=== PATIENT | male | born 1940 | race Caucasian/White ===

== ENCOUNTER 2025-03-11 16:24 | Inpatient (IN) | payer MEDICARE, OTHER ==
[~2025-03-11] VITALS: Ht 165.1 cm; Wt 58.1 kg
[2025-03-11 16:55] LABS: PLATELET COUNT (AUTO) 158 K/uL (150-450); RED BLOOD CELL COUNT(AUTO) 5.58 MIL/uL (4.5-6.0); RED CELL DISTRIBUTION WIDTH 17.0 % (11.5-15.0); WHITE BLOOD COUNT (AUTO) 6.6 K/uL (4.3-11.0)
[2025-03-11 17:08] LABS: INR 1.42 (0.91-1.10)
[2025-03-11 17:09] LABS: CALCIUM, SERUM 9.1 mg/dL (8.5-10.1); CREATININE 1.0 mg/dL (0.6-1.3); SODIUM SERUM 144 mmol/L (136-145); UREA NITROGEN, BLOOD 18 mg/dL (7-18)
[2025-03-11 17:22] LABS: ASPARTATE AMINOTRANSFERASE 29 U/L (15-37); NT-PRO BNP 2533 pg/mL (0-125); TOTAL PROTEIN, SERUM 7.4 g/dL (6.4-8.2)
[2025-03-11] MEDS ORDERED: IOHEXOL-350 100 ML VIAL IV ONE (17:33)
[2025-03-11] MEDS ORDERED: FUROSEMIDE 40 MG/4 ML VIAL ONE (18:27)
[2025-03-11] MEDS: FUROSEMIDE 40 MG/4 ML VIAL IV ONE (18:33)
[2025-03-11] MEDS ORDERED: AMLO-212 PO (18:53)
[2025-03-11] MEDS ORDERED: ESCI20TA PO (18:53)
[2025-03-11] MEDS ORDERED: METO-358 PO (18:53)
[2025-03-11] MEDS ORDERED: APIX2.5T PO (18:53)
[2025-03-11] MEDS ORDERED: LOSA100T31 PO (18:53)
[2025-03-11] MEDS ORDERED: Z GUARD REMEDY 4 OZ OINT TP PRN (19:00)
[2025-03-11] MEDS ORDERED: MAGNESIUM HYDROXIDE 30 ML UDC PO PRN (19:00)
[2025-03-11] MEDS ORDERED: HYDROCODONE/APAP 5/325MG TABLET PO PRN (19:00)
[2025-03-11] MEDS ORDERED: MAG HYDROX/AL HYDROX/SIMETH 30 ML UDC PO PRN (19:00)
[2025-03-11] MEDS ORDERED: ONDANSETRON HCL/PF 4 MG/2 ML VIAL IVP PRN (19:00)
[2025-03-11] MEDS ORDERED: MORPHINE SULFATE INJ 2 MG/ML DISP.SYRIN IV PRN (19:30)
[2025-03-11 20:15] VITALS: BP 128/106; TEMP 98.4; O2SAT 94
[2025-03-11] MEDS: ESCITALOPRAM OXALATE (10 MG) 10 MG TABLET PO SCH (21:07)
[2025-03-11] MEDS: METOPROLOL SUCCINATE 50 MG TAB.SR.24H PO SCH (21:07)
[2025-03-12] VITALS: BP 119/74; TEMP 97.7; O2SAT 96
[2025-03-12 04:00] VITALS: BP_SYST 107; BP_SYST 111; BP_DIAS 69; BP_DIAS 70; TEMP 97.7; TEMP 97.8; O2SAT 100; O2SAT 95
[2025-03-12 06:29] LABS: PLATELET COUNT (AUTO) 155 K/uL (150-450); RED BLOOD CELL COUNT(AUTO) 5.20 MIL/uL (4.5-6.0); RED CELL DISTRIBUTION WIDTH 16.6 % (11.5-15.0); WHITE BLOOD COUNT (AUTO) 6.7 K/uL (4.3-11.0)
[2025-03-12 06:55] LABS: CALCIUM, SERUM 9.0 mg/dL (8.5-10.1); CREATININE 1.0 mg/dL (0.6-1.3); PHOSPHORUS 3.9 mg/dL (2.5-4.9); SODIUM SERUM 145.0 mmol/L (136-145); UREA NITROGEN, BLOOD 19.0 mg/dL (7-18)
[2025-03-12 07:22] LABS: LDL 65.0 mg/dL (0-99)
[2025-03-12 08:00] VITALS: BP 127/92; TEMP 97.5; O2SAT 95
[2025-03-12] MEDS: PANTOPRAZOLE 40 MG TABLET.DR PO SCH (08:21)
[2025-03-12] MEDS: POTASSIUM CHLORIDE 20 MEQ TAB.PRT.SR PO SCH (08:51)
[2025-03-12] MEDS: LOSARTAN POTASSIUM 25 MG TABLET PO SCH (08:51)
[2025-03-12] MEDS: AMLODIPINE BESYLATE 5 MG TABLET PO SCH (08:51)
[2025-03-12] MEDS: FUROSEMIDE 40 MG/4 ML VIAL IV SCH (08:51)
[2025-03-12] MEDS: APIXABAN 2.5 MG TABLET PO SCH (08:52)
[2025-03-12] MEDS ORDERED: FUROSEMIDE 40 MG/4 ML VIAL IV SCH (09:00)
[2025-03-12 12:00] VITALS: BP 106/72; TEMP 97.9; O2SAT 95
[2025-03-12 16:00] VITALS: BP 103/78; TEMP 97.8; O2SAT 95
[2025-03-12 20:00] VITALS: BP 97/74; TEMP 97.6; O2SAT 95
[2025-03-13] VITALS (7 sets, daily range): BP systolic 89–128; BP diastolic 60–86; TEMP 97.5–98.4; O2SAT 94–98
[2025-03-13 08:09] LABS: PLATELET COUNT (AUTO) 143 K/uL (150-450); RED BLOOD CELL COUNT(AUTO) 5.02 MIL/uL (4.5-6.0); RED CELL DISTRIBUTION WIDTH 16.2 % (11.5-15.0); WHITE BLOOD COUNT (AUTO) 5.0 K/uL (4.3-11.0)
[2025-03-13 09:12] LABS: ASPARTATE AMINOTRANSFERASE 28.0 U/L (15-37); CREATININE 0.9 mg/dL (0.6-1.3); PHOSPHORUS 3.8 mg/dL (2.5-4.9); SODIUM SERUM 145.0 mmol/L (136-145); TOTAL PROTEIN, SERUM 6.3 g/dL (6.4-8.2); UREA NITROGEN, BLOOD 18.0 mg/dL (7-18)
[2025-03-13 09:25] LABS: CALCIUM, SERUM 8.5 mg/dL (8.5-10.1)
[2025-03-13] MEDS ORDERED: DAPA10TA PO (15:46)
[2025-03-13] MEDS ORDERED: BUME1TAB8 PO (15:46)
[2025-03-14] VITALS (10 sets, daily range): BP systolic 101–121; BP diastolic 75–87; TEMP 97.5–98.6; O2SAT 94–99
[2025-03-14 07:44] LABS: CALCIUM, SERUM 8.8 mg/dL (8.5-10.1); CREATININE 0.9 mg/dL (0.6-1.3); SODIUM SERUM 143.0 mmol/L (136-145); UREA NITROGEN, BLOOD 18.0 mg/dL (7-18)
[2025-03-14] MEDS: ENSURE ENLIVE 237 ML LIQUID (VANILLA) PO SCH (09:00)
[2025-03-14] MEDS ORDERED: ALBUTEROL FS 2.5 MG/0.5 ML VIAL.NEB NEB PRN (09:30)
[2025-03-14 09:54] LABS: ASPARTATE AMINOTRANSFERASE 32.0 U/L (15-37); TOTAL PROTEIN, SERUM 6.5 g/dL (6.4-8.2)
[2025-03-14] MEDS ORDERED: AMIODARONE HCL 200 MG TABLET PO SCH (10:00)
[2025-03-14] MEDS ORDERED: DOSING PER PHARMACY-AMIODARONE DRIP XX PRN (10:00)
[2025-03-14] MEDS: ARGININE/GLUTAMINE/CALCIUM BMB 1 EACH POWD.PACK PO SCH (10:08)
[2025-03-14] MEDS: LEVOTHYROXINE SODIUM 25 MCG TABLET PO SCH (10:10)
[2025-03-14] MEDS: AMIODARONE 150 MG in IV D5W 100 ML IV ONE (10:21)
[2025-03-14] MEDS: AMIODARONE 450 MG in IV D5W 241 ML IV PRN (10:31)
[2025-03-14] MEDS: IPRATROPIUM NEB FS 0.5 MG/2.5 ML AMPUL.NEB NEB SCH (14:12)
[2025-03-14] MEDS: ALBUTEROL FS 2.5 MG/0.5 ML VIAL.NEB NEB SCH (14:13)
[2025-03-15] VITALS (14 sets, daily range): BP systolic 112–120; BP diastolic 55–80; TEMP 97.6–98.1; O2SAT 91–99
[2025-03-15] MEDS: DILTIAZEM HCL CD 240 MG PO SCH (08:28)
[2025-03-15 08:33] LABS: PLATELET COUNT (AUTO) 155 K/uL (150-450); RED BLOOD CELL COUNT(AUTO) 5.06 MIL/uL (4.5-6.0); RED CELL DISTRIBUTION WIDTH 16.6 % (11.5-15.0); WHITE BLOOD COUNT (AUTO) 5.5 K/uL (4.3-11.0)
[2025-03-15 08:43] LABS: CALCIUM, SERUM 8.6 mg/dL (8.5-10.1); CREATININE 0.9 mg/dL (0.6-1.3); PHOSPHORUS 3.6 mg/dL (2.5-4.9); SODIUM SERUM 141.0 mmol/L (136-145); UREA NITROGEN, BLOOD 15.0 mg/dL (7-18)
[2025-03-16] VITALS (14 sets, daily range): BP systolic 102–132; BP diastolic 63–96; TEMP 97.4–98.3; O2SAT 92–99
[2025-03-16] MEDS: FUROSEMIDE 100 MG/10 ML VIAL IV SCH (09:38)
[2025-03-16] MEDS: TEMAZEPAM 15 MG CAPSULE PO PRN (20:49)
[2025-03-17] VITALS (14 sets, daily range): BP systolic 101–129; BP diastolic 63–81; TEMP 97.2–98.1; O2SAT 93–100
[2025-03-17 08:42] LABS: PLATELET COUNT (AUTO) 151 K/uL (150-450); RED BLOOD CELL COUNT(AUTO) 5.07 MIL/uL (4.5-6.0); RED CELL DISTRIBUTION WIDTH 16.1 % (11.5-15.0); WHITE BLOOD COUNT (AUTO) 5.4 K/uL (4.3-11.0)
[2025-03-17] MEDS: ACETAMINOPHEN 325 MG TABLET PO PRN (10:18)
[2025-03-17 11:13] LABS: ASPARTATE AMINOTRANSFERASE 25 U/L (15-37); CALCIUM, SERUM 8.4 mg/dL (8.5-10.1); CREATININE 0.8 mg/dL (0.6-1.3); PHOSPHORUS 3.4 mg/dL (2.5-4.9); SODIUM SERUM 137 mmol/L (136-145); TOTAL PROTEIN, SERUM 6.8 g/dL (6.4-8.2); UREA NITROGEN, BLOOD 11 mg/dL (7-18)
[2025-03-17 14:26] LABS: APPEARANCE,SPUN,BODY FLUID CLEAR (CLEAR); TOTAL VOLUME,BODY FLUID 800 mL; WBC, BODY FLUID 256 /cu. mm. (0-200)
[2025-03-17 14:38] LABS: PROTEIN, BODY FLUID 2.8 G/DL
[2025-03-18] VITALS: BP 114/71; TEMP 97.5; O2SAT 98
[2025-03-18 04:00] VITALS: BP 101/59; TEMP 97.9; O2SAT 97
[2025-03-18 07:47] VITALS: O2SAT 94
[2025-03-18 08:00] VITALS: BP 120/74; TEMP 98.1; O2SAT 94
[2025-03-18 08:02] VITALS: O2SAT 98
[2025-03-18] MEDS ORDERED: LEVO25TA7 PO (10:07)
[2025-03-18] MEDS ORDERED: DILT240C88 PO (10:07)
[2025-03-18 12:00] VITALS: BP 135/74; TEMP 98.2; O2SAT 98
== END 2025-03-18 14:10 | disposition home health service (06) | DRG 291 ==
LOC: ER 16:35 → TELE1 19:43 → TELE-TD 03-14 09:54 → TELE1 03-15 07:45
PROVIDERS: ADMIT Nurse Practitioner Acute Care; ATTEND Internal Medicine
PROC: 0W993ZX Drainage of Right Pleural Cavity, Percutaneous Approach, Diagnostic (ICD-10-PCS; principal; 2025-03-17)
DX: I11.0 Hypertensive heart disease with heart failure (principal); I50.43 Acute on chronic combined systolic (congestive) and diastolic (congestive) heart failure; J96.01 Acute respiratory failure with hypoxia; J90 Pleural effusion, not elsewhere classified; Z79.01 Long term (current) use of anticoagulants; I34.0 Nonrheumatic mitral (valve) insufficiency; I48.20 Chronic atrial fibrillation, unspecified; J98.11 Atelectasis; I89.0 Lymphedema, not elsewhere classified; Z79.899 Other long term (current) drug therapy; Z90.79 Acquired absence of other genital organ(s); E78.5 Hyperlipidemia, unspecified; N28.1 Cyst of kidney, acquired; I42.9 Cardiomyopathy, unspecified; Z85.46 Personal history of malignant neoplasm of prostate; Z87.891 Personal history of nicotine dependence; Z92.3 Personal history of irradiation
CPT/HCPCS: 36415; 71045-TC; 80048-TC; 80053-TC; 80061-TC; 80076-TC; 83735-TC; 83880; 84100-TC; 84439-TC; 84443-TC; 84484-TC; 85025-TC; 85378-TC; 85730-TC; 87070-TC; 87075-TC; 87102-TC; 89051-TC; 93307-TC; 93970-TC; 94760-TC; 94799-TC; 97110-TC; 97116-TC; 97530-TC; A4223; A6254; G0378; J0282; J1938; J7060; Q9967